=== PATIENT | male | born 1935 | race Caucasian/White ===

== ENCOUNTER 2017-03-27 11:27 | Outpatient (CLI) | payer MEDICARE, BC | END 2017-03-27 11:28 | disposition home or self-care (01) | DRG 563 | LOC: CONVCARE 11:27 | PROVIDERS: ATTEND Orthopaedic Surgery | DX: S46.011A Strain of muscle(s) and tendon(s) of the rotator cuff of right shoulder, initial encounter (principal) | CPT/HCPCS: 73030 ==

== ENCOUNTER 2019-01-04 14:45 | Emergency (ER) | payer MEDICARE, BC ==
[2019-01-04] MEDS ORDERED: SODIUM CHLORIDE 0.9% FLUSH 10 ML SOL IV PRN (14:48)
[2019-01-04 15:07] LABS: BASOPHILS % (AUTO) 1 % (0-3); EOSINOPHILS % (AUTO) 2 % (0-9); HEMATOCRIT 42 % (39-53); HEMOGLOBIN 13.7 gm/dl (13.5-17.7); LYMPHOCYTES % (AUTO) 46.5 % (10-50); MEAN CORPUSCULAR HGB CONC 32.7 gm/dl (32.0-36.0); MEAN CORPUSCULAR VOLUME 98 fL (80-100); MONOCYTES % (AUTO) 7.8 % (0-12); NEUTROPHILS % (AUTO) 43.1 % (37-80)
[2019-01-04 15:15] LABS: INR 0.99 (0.87-1.13)
[2019-01-04 15:23] LABS: BLOOD UREA NITROGEN 25 mg/dl (7-18); CALCIUM 8.9 mg/dl (8.5-10.1); CARBON DIOXIDE 30.2 mEq/L (21-32); CHLORIDE 103 mMol/L (98-107); CREATININE 1.39 mg/dl (0.80-1.30); GLUCOSE 111 mg/dl (74-106); TROP I < 0.017 ng/ml (0.000-0.056)
[2019-01-04 15:26] VITALS: RESP 20; TEMP 96.8; O2SAT 99
[2019-01-04 15:32] VITALS: BP 159/75; PULSE 54
== END 2019-01-04 16:01 | disposition home or self-care (01) | DRG 124 ==
LOC: ED 14:45
DX: H53.8 Other visual disturbances (principal); I63.9 Cerebral infarction, unspecified
CPT/HCPCS: 70450; 80048; 84484; 85025; 85610; 85730; 93005; 99284; 99291

== ENCOUNTER 2019-01-15 11:47 | Day surgery (SDC) | payer MEDICARE, BC ==
[2019-01-04 15:26] VITALS: O2SAT 99
[2019-01-15] MEDS: CYCLOPENTOLATE 1% SOL ONE ×3 (12:10→12:16)
[2019-01-15] MEDS: PHENYLEPHRINE HCL 10% OPHTHAL SOL ONE ×3 (12:10→12:16)
[2019-01-15] MEDS ORDERED: MOXIFLOXACIN-HOME SOL LEFTEYE ONE ×2 (12:11→12:14)
[2019-01-15] MEDS: TROPICAMIDE 1% OPHTH SOL ONE ×3 (12:11→12:17)
[2019-01-15] MEDS ORDERED: KETOROLAC/HOME 0.5% SOL LEFTEYE ONE ×3 (12:11→12:17)
[2019-01-15] MEDS: TETRACAINE HCL 0.5 % 1 DROP SOL ONE ×2 (12:17→13:41)
[2019-01-15] MEDS ORDERED: MIDAZOLAM 2 MG/2 ML SOL ONE (13:00)
[2019-01-15] MEDS ORDERED: FENTANYL 100MCG/2ML SOL ONE (13:00)
[2019-01-15] MEDS ORDERED: POVIDONE IODINE 5% SOL ONE (13:36)
[2019-01-15] MEDS ORDERED: BSS W/ 0.5 MG P.F. EPI 1 BOTTLE ONE (13:36)
[2019-01-15] MEDS: LIDOCAINE HCL 2% MPF 10 ML SOL ONE ×2 (13:43→13:47)
[2019-01-15] MEDS ORDERED: ACETAZOLAMIDE 250 MG PO ONE (14:02)
[2019-01-15 14:08] VITALS: BP 155/73; PULSE 64; RESP 18; TEMP 98.4
== END 2019-01-15 14:23 | disposition home or self-care (01) | DRG 125 ==
LOC: SURG 11:47
PROVIDERS: ATTEND Ophthalmology
DX: H25.89 Other age-related cataract (principal)
CPT/HCPCS: J2250; J3010; A9270-GY

== ENCOUNTER 2019-01-29 13:04 | Day surgery (SDC) | payer MEDICARE, BC ==
[~2019-01-29 13:04] MED LIST: FENTANYL 100MCG/2ML SOL ONE; MIDAZOLAM 2 MG/2 ML SOL ONE
[2019-01-29] MEDS ORDERED: ACETAZOLAMIDE 250 MG PO ONE (13:35)
[2019-01-29 13:40] VITALS: RESP 16
[2019-01-29] MEDS: TROPICAMIDE 1% OPHTH SOL ONE ×3 (13:41→13:49)
[2019-01-29] MEDS: KETOROLAC/HOME 0.5% SOL RIGHTEYE ONE ×3 (13:41→13:49)
[2019-01-29] MEDS: CYCLOPENTOLATE 1% SOL ONE ×3 (13:41→13:49)
[2019-01-29] MEDS: PHENYLEPHRINE HCL 10% OPHTHAL SOL ONE ×3 (13:41→13:49)
[2019-01-29] MEDS: MOXIFLOXACIN-HOME SOL RIGHTEYE ONE ×2 (13:42→13:46)
[2019-01-29] MEDS: TETRACAINE HCL 0.5 % OPHTH 1 DROP SOL ONE ×2 (13:50→14:40)
[2019-01-29] MEDS ORDERED: POVIDONE IODINE 5% SOL ONE (14:34)
[2019-01-29] MEDS ORDERED: LIDOCAINE HCL 2% MPF 10 ML SOL ONE (14:34)
[2019-01-29] MEDS: BSS W/ 0.5 MG P.F. EPI 1 BOTTLE ONE (14:46)
[2019-01-29 15:07] VITALS: BP 138/72; PULSE 53; TEMP 96.7; O2SAT 97
== END 2019-01-29 15:17 | disposition home or self-care (01) | DRG 125 ==
LOC: SURG 13:04
PROVIDERS: ATTEND Ophthalmology
DX: H25.89 Other age-related cataract (principal)
CPT/HCPCS: J2250; J3010; A9270-GY